=== PATIENT | male | born 1970 | race Caucasian/White ===

== ENCOUNTER 2017-02-11 06:38 | Emergency (ER) | payer OTHER ==
[~2017-02-11] VITALS: Ht 175.3 cm; Wt 95.3 kg
--- NOTE | 2017-02-11 06:56 | PHYS DOC ---
Adult General Chief Complaint Chief Complaint: MECHANICAL FALL HPI HPI Patient is a 46 year old male who presents with pain after a fall. The patient states he [place] of [place] bunk at shelter. He says he was dreaming & rolled over. Denies loss of consciousness at time of initial injury but thinks he later experienced syncopal injury. He reports posterior scalp swelling & pain, complains of neck pain, lower back pain, left shoulder pain, & right sided rib pain. Denies shortness of breath, vomiting, extremity pain. Denies use of blood thinners, tetanus up to date. He is incarcerated. Review of Systems Review of Systems Constitutional: Denies fever or chills Eyes: Denies change in visual acuity HENT: Denies nasal congestion or sore throat Respiratory: Denies cough or shortness of breath Cardiovascular: Denies chest pain or edema GI: Denies abdominal pain, nausea, vomiting Musculoskeletal: Reports neck, back, shoulder pain Integument: Reports abrasion Neurologic: Reports headache, denies focal weakness or sensory changes Current Medications Current Medications Current Medications Medications (Trade) Dose Ordered Sig/Millie Start Time Stop Time Status Last Admin Dose Admin Fentanyl Citrate (Fentanyl 2ml Vial) 50 mcg 1X ONCE 02/11/17 07:00 02/11/17 07:01 DC 02/11/17 07:40 50 MCG Neomycin/ Polymyxin/ Bacitracin (Triple Antibiotic Ointment) 1 pkt 1X ONCE 02/11/17 07:00 02/11/17 07:01 DC 02/11/17 07:40 1 PKT Allergies Allergies Allergies Coded Allergies Type Severity Reaction Last Updated Verified No Known Drug Allergies 02/11/17 No Physical Exam Physical Exam Constitutional: Well developed, well nourished, no acute distress, non-toxic appearance. HENT: Normocephalic, atraumatic, bilateral external ears normal, oropharynx moist, nose normal. Eyes: PERRLA, EOMI, conjunctiva normal, no discharge. Neck: supple, no stridor. Midline C-spine tenderness is present diffusely without step off Cardiovascular: RRR, no murmurs, no edema. Lungs & Thorax: LCTAB, no wheezing, no respiratory distress. Tenderness with palpation over right anterior ribs 4 and 5 Abdomen: soft, nontender, nondistended. Skin: Warm, dry, large area of ecchymosis/abrasion approximately 10 cm x 8 cm overlying the left scapula Back: Diffuse lumbar spine tenderness without step-off Extremities: Generalized tenderness over left shoulder joint, no swelling or deformity, radial pulse 2+, radial/median/ulnar nerve sensory and motor function intact. Pelvis stable. Neurologic: Alert and oriented X 3, cranial nerves II through XII grossly intact , symmetric strength and sensation to upper and lower extremities no focal deficits noted. Psychologic: Affect normal, judgement normal, mood normal. Current Patient Data Vital Signs Vital Signs Date Time Temp Pulse Resp B/P (MAP) Pulse Ox O2 Delivery O2 Flow Rate FiO2 02/11/17 07:40 18 Room Air 02/11/17 07:25 58 127/81 (96) 97 02/11/17 06:42 98.1 98.1 EKG EKG [] Radiology/Procedures Radiology/Procedures PROCEDURE: SHOULDER 2+V LEFT Examination: 2 views of the left shoulder History: History of fall, pain Comparison: None Findings: The humerus head is within the glenoid. There is no acute fracture or dislocation identified. Impression: No acute osseous findings. DICTATED and SIGNED BY: JOLANTA NUNEZ MD DATE: 02/11/1747 PROCEDURE: LUMBAR SPINE 2-3V Examination: 2 views of the lumbar spine History: History of fall, pain Comparison: None available Findings: Mild endplate degenerative disease identified at L1-L2 vertebral levels. There is minimal compression change of from L1 and L2 vertebral bodies likely chronic. There is 2 mm retrolisthesis of L2 on L3. Moderate sized osteophyte formation identified in the vertebral bodies particularly at L4 vertebral level. The facets are well aligned. Impression 1. Moderate degenerative changes lumbar spine. Minimal 2 mm retrolisthesis of L2 on L3. DICTATED and SIGNED BY: JOLANTA NUNEZ MD DATE: 02/11/1745 PROCEDURE: CT HEAD AND CERVICAL SPINE WO CT head without intravenous contrast History: 6 foot fall off the bed, landed on table, injury to head. Comparison: None. Technique: Axial images are obtained of the head from the skull base through the vertex without IV contrast. Exposure: One or more of the following individualized dose reduction techniques were utilized for this examination: 1. Automated exposure control 2. Adjustment of the mA and/or kV according to patient size 3. Use of iterative reconstruction technique Findings: The ventricles are appropriate in size, shape, and location for the patient's age. No obvious intracranial mass, mass-effect, midline shift, hemorrhage or obvious acute infarction is identified. Basilar cisterns are patent. Bone windows demonstrate no acute calvarial abnormality. Bilateral maxillary sinus and ethmoid mucosal disease is seen. Mild sphenoid sinus mucosal thickening is present. Right temporal scalp hematoma is seen. Impression: 1. No acute intracranial process. 2. Paranasal sinus disease. 3. Right scalp hematoma. CT cervical spine Comparison: None. Technique: Noncontrast CT of the cervical spine was performed using helical technique. Axial, sagittal, coronal reconstructions were obtained. Exposure: One or more of the following individualized dose reduction techniques were utilized for this examination: 1. Automated exposure control 2. Adjustment of the mA and/or kV according to patient size 3. Use of iterative reconstruction technique Findings: There is no evidence of acute fracture or acute malalignment involving the cervical spine. No prevertebral soft tissue swelling is identified. There is mild levoconvex curvature of the cervical spine. Multilevel degeneration is seen with degenerative disc disease as well as facet and uncovertebral hypertrophy. There is likely neural foraminal narrowing at multiple levels. There is probably severe spinal canal stenosis at C5-6 secondary to disc pathology. Impression: 1. No evidence of acute traumatic injury involving the cervical spine. 2. Multilevel degeneration. There is probably severe spinal canal stenosis at C5-6. Electronically signed by: Raymundo Lester MD (02/11/2017 7:31 AM) [facility] DICTATED and SIGNED BY: RAYMUNDO LESTER MD DATE: 02/11/17725 PROCEDURE: RIBS RIGHT AND PA CHEST Examination: PA view the chest and right RIBS History: History of right rib pain after fall Comparison: None available Findings: The cardiomediastinal silhouette grossly appears unremarkable. There is no acute infiltrate or visualized pneumothorax. No evidence of displaced right rib fracture. Impression: 1. No acute cardiopulmonary findings. 2. No evidence of displaced right rib fracture. DICTATED and SIGNED BY: JOLANTA NUNEZ MD DATE: 02/11/17 0741[] Course & Med Decision Making Course & Med Decision Making Pertinent Labs and Imaging studies reviewed. (See chart for details) The patient presents with pain after a fall. Cervical spine collar applied by RN , removed by the patient immediately after placement. He refused to have it replaced. Provided pain medication. Tetanus up-to-date. Wound cleaned and triple antibiotic ointment and gauze applied. No evidence of serious acute injury identified on imaging. Patient well-appearing with stable vitals. Recommend supportive care with rest, ice, Tylenol or ibuprofen. Follow-up with primary care physician in 2-3 days. Return to the emergency department for altered mental status, focal neurologic deficit, severe chest pain or shortness of breath, uncontrolled vomiting, any otherwise worsening condition. Discharged with guards from the shelter, in stable condition. [] Dragon Disclaimer Dragon Disclaimer This electronic medical record was generated, in whole or in part, using a voice recognition dictation system. Departure Departure Impression: Primary Impression: Closed head injury Additional Impression: Contusion of mid back Disposition: 01 HOME, SELF-CARE Condition: STABLE Referrals: NO PCP (PCP) Patient Instructions: Contusion, [id number], Head Injury, Adult, [id number] Additional Instructions: You were seen in the emergency department today for pain after a fall. No serious injury was found. Apply ice to sore areas. Take Tylenol or ibuprofen for pain. Follow-up with primary care physician in 2-3 days. Return to the emergency department for severe confusion, difficulty walking or talking, uncontrolled vomiting, severe shortness of breath or chest pain, numbness or weakness in arms or legs, any otherwise worsening condition. Problem Qualifiers JANENE DANIEL MD Feb 11, 2017 06:56
[2017-02-11] MEDS ORDERED: NEOMY/BACITR/POLYMYXIN OINT PACKET. TP ONE (07:00)
[2017-02-11] MEDS ORDERED: fentaNYL PF VIAL 100 MCG/2 ML VIAL IV ONE (07:00)
[2017-02-11 07:25] VITALS: BP 127/81
--- NOTE | 2017-02-11 07:34 | RAD ---
CT head without intravenous contrast History: 6 foot fall off the bed, landed on table, injury to head. Comparison: None. Technique: Axial images are obtained of the head from the skull base through the vertex without IV contrast. Exposure: One or more of the following individualized dose reduction techniques were utilized for this examination: 1. Automated exposure control 2. Adjustment of the mA and/or kV according to patient size 3. Use of iterative reconstruction technique Findings: The ventricles are appropriate in size, shape, and location for the patient's age. No obvious intracranial mass, mass-effect, midline shift, hemorrhage or obvious acute infarction is identified. Basilar cisterns are patent. Bone windows demonstrate no acute calvarial abnormality. Bilateral maxillary sinus and ethmoid mucosal disease is seen. Mild sphenoid sinus mucosal thickening is present. Right temporal scalp hematoma is seen. Impression: 1. No acute intracranial process. 2. Paranasal sinus disease. 3. Right scalp hematoma. CT cervical spine Comparison: None. Technique: Noncontrast CT of the cervical spine was performed using helical technique. Axial, sagittal, coronal reconstructions were obtained. Exposure: One or more of the following individualized dose reduction techniques were utilized for this examination: 1. Automated exposure control 2. Adjustment of the mA and/or kV according to patient size 3. Use of iterative reconstruction technique Findings: There is no evidence of acute fracture or acute malalignment involving the cervical spine. No prevertebral soft tissue swelling is identified. There is mild levoconvex curvature of the cervical spine. Multilevel degeneration is seen with degenerative disc disease as well as facet and uncovertebral hypertrophy. There is likely neural foraminal narrowing at multiple levels. There is probably severe spinal canal stenosis at C5-6 secondary to disc pathology. Impression: 1. No evidence of acute traumatic injury involving the cervical spine. 2. Multilevel degeneration. There is probably severe spinal canal stenosis at C5-6. Electronically signed by: Raymundo Lester MD (02/11/2017 7:31 AM) [facility]
--- NOTE | 2017-02-11 07:48 | RAD ---
Examination: PA view the chest and right RIBS History: History of right rib pain after fall Comparison: None available Findings: The cardiomediastinal silhouette grossly appears unremarkable. There is no acute infiltrate or visualized pneumothorax. No evidence of displaced right rib fracture. Impression: 1. No acute cardiopulmonary findings. 2. No evidence of displaced right rib fracture.
--- NOTE | 2017-02-11 07:50 | RAD ---
Examination: 2 views of the lumbar spine History: History of fall, pain Comparison: None available Findings: Mild endplate degenerative disease identified at L1-L2 vertebral levels. There is minimal compression change of from L1 and L2 vertebral bodies likely chronic. There is 2 mm retrolisthesis of L2 on L3. Moderate sized osteophyte formation identified in the vertebral bodies particularly at L4 vertebral level. The facets are well aligned. Impression 1. Moderate degenerative changes lumbar spine. Minimal 2 mm retrolisthesis of L2 on L3.
--- NOTE | 2017-02-11 07:51 | RAD ---
Examination: 2 views of the left shoulder History: History of fall, pain Comparison: None Findings: The humerus head is within the glenoid. There is no acute fracture or dislocation identified. Impression: No acute osseous findings.
== END 2017-02-11 08:17 | disposition home or self-care (01) ==
LOC: EEVIPCON 06:38 → ER 06:46
DX: S30.0XXA Contusion of lower back and pelvis, initial encounter (principal); S40.012A Contusion of left shoulder, initial encounter; S09.90XA Unspecified injury of head, initial encounter; M54.2 Cervicalgia; R07.81 Pleurodynia; W06.XXXA Fall from bed, initial encounter; Y93.89 Activity, other specified; Y92.149 Unspecified place in prison as the place of occurrence of the external cause; Y99.8 Other external cause status
CPT/HCPCS: 70450; 71101; 72100; 72125; 73030; 96374; 99284; J3010